=== PATIENT | female | born 2000 | race Caucasian/White ===

== ENCOUNTER 2019-04-30 16:43 | Emergency (ER) | payer OTHER ==
[~2019-04-30] VITALS: Ht 165.1 cm; Wt 69.0 kg
[~2019-04-30 16:43] MED LIST: ALBUTEROL2.5 MG/0.1 INH; BACTRIM DS TAB1 EACH PO; KEFLEX500 M1 PO; LEVAQUIN 500 M500 M1 PO; MACROBID 100 M100 MG PO; METFORMIN HCL500 MG PO; MUCINEX600 MG PO; ONDANSETRON HCL4 M2 PO; PHENERGAN 25 MG25 M1 PO; PREDNISONE50 MG PO; PRILOSEC 10MG C10 MG PO; PROAIR HFA8.5 GM INH; PROZAC10 MG PO; PYRIDIUM200 MG PO; TRAZODONE HCL50 MG; ZOLOFT25 MG PO
[2019-04-30 17:42] LABS: URINE BILIRUBIN NEGATIVE (Negative); URINE BLOOD NEGATIVE (Negative); URINE CLARITY CLOUDY; URINE COLOR YELLOW; URINE GLUCOSE-RANDOM* NEGATIVE (Negative); URINE KETONES TRACE (Negative); URINE NITRITE-REFLEX NEGATIVE (Negative); URINE PROTEIN (DIPSTICK) NEGATIVE (Negative)
[2019-04-30 17:44] LABS: URINE LEUKOCYTES-REFLEX 2+ (Negative)
[2019-04-30] MEDS ORDERED: MACROBID 100 M100 MG PO (17:49)
[2019-04-30] MEDS ORDERED: SERTRALINE HCL50 MG PO (17:49)
[2019-04-30] MEDS ORDERED: ZOFRAN4 MG PO (17:49)
[2019-04-30 17:53] LABS: SQUAMOUS >10 Many /LPF (0-3)
[2019-04-30 17:54] LABS: AMORPHOUS URATES Few /LPF (None Seen); CASTS None Seen /LPF (None Seen); URINE RBC 0-2 Rare /HPF (0-2); URINE WBC-REFLEX 6-15 Few /HPF (0-5)
[2019-04-30 18:32] LABS: ABSOLUTE NEUTROPHILS 7.1 thou/uL (1.4-8.2); BASOPHILS 0.2 % (0.0-2.0); EOSINOPHILS 0.2 % (0.0-3.0); HEMATOCRIT 35.7 % (37.0-47.0); LYMPHOCYTES 21.5 % (24.0-44.0); MCH 28.8 pg (26.0-34.0); MCHC 33.5 g/dL (28.0-37.0); MONOCYTES 5.4 % (1.0-8.0); PLATELET COUNT 242 thou/uL (150-400); POLYS 72.7 % (36.0-66.0); RBC 4.15 mil/uL (4.20-5.00); RDW 14.9 % (10.5-14.5); WBC 9.8 thou/uL (4.0-11.0)
[2019-04-30 18:36] LABS: CALCIUM 9.8 mg/dL (8.5-10.1); CREATININE 0.8 mg/dL (0.6-1.0); POTASSIUM 3.5 mmol/L (3.5-5.1)
[2019-04-30 18:42] LABS: ALBUMIN 3.8 g/dL (3.4-5.0); TOTAL BILIRUBIN 0.3 mg/dL (<0.1-1.0); TOTAL PROTEIN 7.9 g/dL (6.4-8.2)
[2019-04-30] MEDS ORDERED: TYLENOL WITH CO1 TA1 PO (21:29)
[2019-04-30] MEDS ORDERED: ONDANSETRON ODT4 MG PO (21:29)
[2019-04-30 21:42] VITALS: BP 102/59
== END 2019-04-30 21:42 | disposition home or self-care (01) ==
LOC: ER 16:43
PROVIDERS: Emergency Medicine
DX: O21.9 Vomiting of pregnancy, unspecified (principal); K21.9 Gastro-esophageal reflux disease without esophagitis; F31.9 Bipolar disorder, unspecified; F41.9 Anxiety disorder, unspecified; F17.210 Nicotine dependence, cigarettes, uncomplicated; Z3A.15 15 weeks gestation of pregnancy; Z91.018 Allergy to other foods